=== PATIENT | female | born 1950 | race Hispanic/Latino ===

== ENCOUNTER → 2017-11-15 | Outpatient (CLI) | payer MEDICARE | END | disposition home or self-care (01) | LOC: RAH 10:04 | PROVIDERS: ATTEND Family Medicine | DX: Z12.31 Encounter for screening mammogram for malignant neoplasm of breast (principal) | CPT/HCPCS: 77067 ==

== ENCOUNTER 2018-05-17 08:10 | Day surgery (SDC) | payer MEDICARE ==
[~2018-05-17] VITALS: Ht 152.4 cm; Wt 105.7 kg
[~2018-05-17 08:10] MED LIST: AMLO5TAB7 PO; ASPI-555 PO; METO50TA18 PO; SODIUM CHLORIDE 0.9% 1000ML 1,000 ML IV ONE
[2018-05-17 08:31] VITALS: BP 109/52
[2018-05-17 09:24] VITALS: BP 113/43
[2018-05-17 09:29] VITALS: BP 104/52
[2018-05-17 09:39] VITALS: BP 124/52
[2018-05-17 09:44] VITALS: BP 138/74
== END 2018-05-17 10:05 ==
LOC: ENDO 08:10 → DAH 08:10 → ENDO 10:05
PROVIDERS: ATTEND Internal Medicine Gastroenterology
DX: K29.50 Unspecified chronic gastritis without bleeding (principal); R00.1 Bradycardia, unspecified; I10 Essential (primary) hypertension; K21.9 Gastro-esophageal reflux disease without esophagitis; E66.01 Morbid (severe) obesity due to excess calories; Z86.010 Personal history of colon polyps; Z90.710 Acquired absence of both cervix and uterus; Z98.890 Other specified postprocedural states; Z68.42 Body mass index [BMI] 45.0-49.9, adult; Z79.899 Other long term (current) drug therapy
CPT/HCPCS: 43238; 88161; 88173; 88305; 88341; 88342; 93005; A4215; A4606; J7030; 43231; 43232

== ENCOUNTER → 2018-08-31 | Outpatient (CLI) | payer MEDICARE ==
[~2018-08-31] MED LIST changes: -SODIUM CHLORIDE 0.9% 1000ML 1,000 ML IV ONE
[2018-08-31 15:05] LABS: CREATININE 0.7 mg/dL (0.5-1.5)
== END | disposition home or self-care (01) ==
LOC: LAB 14:10
PROVIDERS: ATTEND Surgery
DX: C49.A0 Gastrointestinal stromal tumor, unspecified site (principal)
CPT/HCPCS: 36415; 82565; 84520

== ENCOUNTER → 2018-09-19 | Outpatient (CLI) | payer MEDICARE | END | disposition home or self-care (01) | LOC: OIH 10:00 | PROVIDERS: ATTEND Surgery | DX: K57.90 Diverticulosis of intestine, part unspecified, without perforation or abscess without bleeding (principal); C49.A0 Gastrointestinal stromal tumor, unspecified site; M51.37 Other intervertebral disc degeneration, lumbosacral region; K46.9 Unspecified abdominal hernia without obstruction or gangrene | CPT/HCPCS: 74176 ==